=== PATIENT | male | born 1985 | race Caucasian/White ===

== ENCOUNTER 2023-08-17 14:31 | Emergency (ER) | payer OTHER, SELFPAY ==
[2023-08-17 14:35] VITALS: BP 157/102
--- NOTE | 2023-08-17 14:56 | ED.GENMED ---
History of Present Illness
General
Chief Complaint: Skin Surface Trauma
Source: patient
Exam Limitations: none
Time Seen by Provider: 08/17/23 14:39
Nursing documentation reviewed up to this point in time: agreed with
Travel History
Have you had any contact with someone who has COVID-19?: No
Do you have any symptoms of coronavirus? Fever > 100 degrees, chills, cough, shortness of breath, sore throat, loss of taste or smell, muscle aches, or headache?: No
History of Present Illness
History of Present Illness:
pt is a 38 y/o M R hand dominant here with left middle finger laceration with a table circular saw today just [employer]
bleeding controlled
has pain athe fingertip which is still attached
last tetanus 3 years ago
no numbnes/stingling/weakness.
Past History
Past History
ED Past Medical History: None
ED Past Surgical History: None
Social History
Tobacco: Non-smoker
Alcohol: None
Drug: None
Personal:
Living: with family
Employment: Employed
Review of Systems
Review of Systems
Allergies reviewed?: Yes
All Other Systems: Not applicable
Phy Exam
Physical Exam
Physical Exam:
GENERAL: Alert , in no apparent distress, comfortable at rest
HEAD: NCAT
CV: cap refill intact
NEUROLOGICAL: Alert and oriented, no focal neuro deficits, , 5/5 strength, sensation intact, ambulation slight limp right leg
SKIN: Warm and dry,
MUSCULOSKELETAL: distal L middle fingertip laceration irregular, fat pad and down o nthe side next to the nail with subcutaneous fat exposed, approx 3.5 cm; capillary bleeding
controleld with pressure
sensation and strength intact
full flexion intact
PSYCH: Normal and appropriate interaction.
Course
Orders/Labs/Results
Orders:
Orders
08/17/23 14:47
Finger(s)/Thumb 2 View Lt [CR Finger(s)/thumb Min 2 Vw Lt] Urgent
Comment:
Reason For Exam: left distal finger avulsion
08/17/23 15:15
Cephalexin Monohydrate [Keflex] 500 mg PO NOW STA
Vital Signs
Initial and Last Documented VS:
Initial Vital Signs
Temp Pulse Resp BP Pulse Ox
98.9 F 87 18 157/102 98
08/17/23 14:35 08/17/23 14:35 08/17/23 14:35 08/17/23 14:35 08/17/23 14:35
Last Documented Vital Signs
Temp Pulse Resp BP Pulse Ox
98.9 F 87 18 157/102 98
08/17/23 14:35 08/17/23 14:35 08/17/23 14:35 08/17/23 14:35 08/17/23 14:35
Procedures
Laceration Closure
Left Third Finger(s):
Status of Wound: clean
Size of Wound in cm: 3.5
Description of Wound Edges: ragged
Preparation: cleaned with saline and cleaned with Betadine
Anesthesia: 1% Lidocaine and Digital-Regional
Revision/Debridement: minor revision and irrigate-direct pressure
Wound exploration: extensive cleaning of contaminated wound and explored to base- no FB
Type of Closure: single layer closure
Skin Closure Material: 5-0 nylon
Number of sutures: 4
Additional information:
capillary bleeder contained by a figure 8 stitch
MDM/Problems Addressed
Differential Diagnosis Includes:
laceation, open fx, fb
MDM/Problems Addressed:
38 y/o M
r hand dominant
L middle finger table saw laceration
small avulsion fx vs. fb in the soft tissue on xray
fat pad laceration with small capillary bleeding contained with stuures
xeroform dressing applied
abx
f/u hand, spoke with dr. nichols who will see him in the office
tetanus UTD.
*Critical Care Note
Total Time (30-74mins, 75-104mins- exclusive of procedures): Not Applicable
ED Attending Note
-
Portions of this chart may have been created with voice recognition software.� Occasional wrong word or��sound alike� substitutions may have occurred due to the inherent limitations of voice recognition software.
Discharge Plan
Departure
Patient Disposition: Home (Routine Discharge)
Date of Disposition: 08/17/23
Time of Disposition: 16:08
Patient with high blood pressure during this ER visit?: Yes
Condition: Fair
Discharge Problem:
Laceration of finger
Instructions: Wound Care (DC), Laceration Repair With Stitches (DC)
Prescriptions:
New
cephalexin 500 mg capsule
500 mg PO Q8H Qty: 21 0RF
Referrals:
Sandeep Nichols MD [Active] - Follow up in 2-3 days
Activity Restrictions/Additional Instructions:
YOUR WOUND WAS APPROXIMATED WITH SUTURES
YOU HAD XRAY THAT DID NOT SHOW A DEFINITIVE FRACTURE BUT SMALL SLIVERS THAT COULD REPRESENT FOREIGN BODIES
WE IRRIGATED THE WOUND AND WILL GIVE YOU ANTIBIOTICS TO PREVENT INFECTION
FOLLOW UP WITH DR. NICHOLS THIS WEEK
IN THE MEANTIME, YOU SHOULD ELEVATE THE FINGER, TAKE MOTRIN EVERY 8 HOURS, CHANGE THE DRESSING ON SATURDAY UNLESS YOU WILL BE SEEING DR. NICHOLS THEN
RETURN TO THE ER FOR : FEVER, DRAINAGE, PAIN, SWELLIGN, REDNESS, BLEEDIN GOR NAY CONCERNS.
Interventions
Interventions:
*Risk Screen - Suicide Last Done: 08/17/23 14:35
*General Assessment Last Done: 08/17/23 14:35
*Neglect/Abuse Screening Last Done: 08/17/23 14:35
ED- Fall Risk Assessment Last Done: 08/17/23 15:48
*ED COVID-19 Vaccine History Last Done: 08/17/23 14:35
*Nursing Disposition Last Done: 08/17/23 16:17
ED-Skin Assessment Last Done: 08/17/23 14:52
Discharge Date and Time
Discharge Date/Time: 08/17/23 16:17
[2023-08-17] MEDS: KEFLEX 500 MG PO (15:43)
[2023-08-17 15:48] VITALS: BMI 26.6
== END 2023-08-17 16:17 | disposition home or self-care (01) ==
LOC: EMR 14:31
PROVIDERS: EMERGENCY PHYSICIAN Emergency Medicine
DX: S61.213A Laceration without foreign body of left middle finger without damage to nail, initial encounter (principal); W31.2XXA Contact with powered woodworking and forming machines, initial encounter
CPT/HCPCS: 99284; 12042; 73140